=== PATIENT | female | born 2000 | race Caucasian/White ===

== ENCOUNTER 2021-03-02 10:55 | Outpatient (CLI) | payer BC ==
[~2021-03-02 10:55] MED LIST: Iopamidol 370 76% 100 ML VIAL ONE
== END 2021-03-02 10:56 | disposition home or self-care (01) ==
LOC: BICCT 10:55
PROVIDERS: ATTEND Urology
DX: R31.0 Gross hematuria (principal); R39.11 Hesitancy of micturition; R10.2 Pelvic and perineal pain
CPT/HCPCS: 74178; Q9967